=== PATIENT | male | born 1965 | race Caucasian/White ===

== ENCOUNTER 2021-02-21 17:49 | Emergency (ER) | payer OTHER ==
[2021-02-21] MEDS ORDERED: Bacitracin Oint 1 GM U/D Packet TOP ONE (18:12)
--- NOTE | 2021-02-21 19:27 | EDM.PDOC ---
ED HPI GENERAL MEDICAL PROBLEM - General Chief Complaint: Laceration Stated Complaint: FISH HOOK L THUMB Time Seen by Provider: 02/21/21 19:10 Source of Information: Reports: Patient History Limitations: Reports: No Limitations - History of Present Illness INITIAL COMMENTS - FREE TEXT/NARRATIVE: 55-year-old with a fishhook embedded into the dorsal aspect of his left thumb. No other complaints. Onset: Sudden Duration: Hour(s): (3 hours ago) Location: Reports: Upper Extremity, Left Associated Symptoms: Reports: No Other Symptoms - Related Data Allergies Allergy/AdvReac Type Severity Reaction Status Date / Time No Known Allergies Allergy Verified 02/21/21 19:04 Home Meds: Home Meds Aspirin 325 mg PO DAILY 02/21/21 [History] Losartan [Cozaar] 50 mg PO DAILY 02/21/21 [History] Pantoprazole Sodium [Protonix] 40 mg PO DAILY 02/21/21 [History] Past Medical History HEENT History: Reports: Impaired Vision Cardiovascular History: Reports: Hypertension Gastrointestinal History: Reports: GERD - Past Surgical History Neurological Surgical History: Reports: Other (See Below) Other Neurological Surgeries/Procedures: right carotid stent Musculoskeletal Surgical History: Reports: Other (See Below) Other Musculoskeletal Surgeries/Procedures:: elbow pinning Social & Family History - Tobacco Use Tobacco Use Status *Q: Never Tobacco User - Caffeine Use Caffeine Use: Reports: Coffee, Soda - Recreational Drug Use Recreational Drug Use: No ED ROS GENERAL - Review of Systems Review Of Systems: See Below Constitutional: Denies: Fever, Chills HEENT: Reports: No Symptoms Respiratory: Reports: No Symptoms Cardiovascular: Reports: No Symptoms GI/Abdominal: Reports: No Symptoms Psychiatric: Reports: No Symptoms ED EXAM, SKIN/RASH Exam: See Below Exam Limited By: No Limitations General Appearance: Alert, No Apparent Distress Head: Atraumatic Respiratory/Chest: No Respiratory Distress, Lungs Clear Cardiovascular: Regular Rate, Rhythm Extremities: Other (1 damian of a treble hook is embedded into the dorsal aspect of his left thumb) Psychiatric: Normal Affect, Normal Mood Course - Vital Signs Last Recorded V/S: Last Vital Signs Temp 98.9 F 02/21/21 19:13 Pulse 84 02/21/21 19:13 Resp 16 02/21/21 19:13 BP 154/100 H 02/21/21 19:13 Pulse Ox 97 02/21/21 19:13 - Orders/Labs/Meds Meds: Medications Discontinued Medications Generic Name Dose Route Start Last Admin Trade Name Shruthi PRN Reason Stop Dose Admin Bacitracin 1 dose 02/21/21 18:12 02/21/21 19:32 Bacitracin Oint 1 Gm U/D Packet TOP 02/21/21 18:13 1 dose ONETIME ONE Administration Lidocaine HCl 5 ml 02/21/21 18:12 02/21/21 19:32 Lidocaine 1% 5 Ml Sdv INJECT 02/21/21 18:13 5 ml ONETIME ONE Administration - Re-Assessments/Exams Free Text/Narrative Re-Assessment/Exam: 02/21/21 19: The area was washed and scrubbed with alcohol, infiltrated with a small amount of 1% lidocaine, then the hook removed with countertraction without difficulty. Topical bacitracin and a Band-Aid was applied, keep wound clean while healing. Departure - Departure Time of Disposition: 19:28 Disposition: Home, Self-Care 01 Clinical Impression: [place] injury to finger Qualifiers: Encounter type: initial encounter Laterality: left Qualified Code(s): S69.92XA - Unspecified injury of left wrist, hand and finger(s), initial encounter - Discharge Information Instructions: Puncture Wound, [id number] Referrals: PCP,None [Primary Care Provider] - Forms: ED Department Discharge Care Plan Goals: Keep wound covered and clean while healing, increase activity as tolerated. Return if concerns of infection or not healing satisfactorily. Sepsis Event Note (ED) - Focused Exam Vital Signs: Vital Signs Temp Pulse Resp BP Pulse Ox 02/21/21 19:13 98.9 F 84 16 154/100 H 97 02/21/21 18:58 98.9 F 84 16 154/100 H 97
== END 2021-02-21 19:33 | disposition home or self-care (01) ==
LOC: JP.ED 17:49
DX: S60.352A Superficial foreign body of left thumb, initial encounter (principal); I10 Essential (primary) hypertension; K21.9 Gastro-esophageal reflux disease without esophagitis; Z79.82 Long term (current) use of aspirin; Z79.899 Other long term (current) drug therapy; W45.8XXA Other foreign body or object entering through skin, initial encounter
CPT/HCPCS: 99283